=== PATIENT | male | born 1935 | race Caucasian/White ===

== ENCOUNTER 2017-11-06 23:32 | Inpatient (IN) | payer OTHER ==
[~2017-11-06] VITALS: Ht 160 cm; Wt 134.8 kg
[~2017-11-06 23:32] MED LIST: Aspirin Chewable PO; Coumadin,Jantoven PO; FINASTERIDE5 MG PO; Flomax PO; K-Dur PO; LASIX40 MG PO; LOVENOX100 MG/1 M SC; MOBIC7.5 MG PO; OMEGA 3-6-91200 MG PO; TOPROL XL100 MG PO; Zestril,Prinivil PO; Zocor PO
[2017-11-07 00:45] LABS: HEMOGLOBIN 13.5 G/DL (12.5-16.6); MCH 31.1 PG (29.0-34.0); MCHC 34.6 G/DL (30.0-36.0); MCV 89.9 FL (86-99); PLATELET COUNT 188 K/uL (156-360); RBC DIS.WIDTH-CV 13.8 % (11.8-14.6); RBC DIS.WIDTH-SD 45.1 % (39-53); RED BLOOD COUNT 4.34 M/uL (4.00-5.50); WHITE BLOOD COUNT 12.4 K/uL (4.1-10.2)
[2017-11-07 00:55] LABS: ALBUMIN 4.2 g/dL (3.2-4.8)
[2017-11-07 00:56] LABS: CHLORIDE 101 mEq/L (99-109); POTASSIUM 4.2 mEq/L (3.7-5.4); SODIUM 137 mEq/L (136-147)
[2017-11-07 00:58] LABS: GLUCOSE 145 mg/dL (70-99); TOTAL PROTEIN 7.4 g/dL (6.4-8.3)
[2017-11-07 01:00] LABS: TOTAL BILIRUBIN 1.3 mg/dL (0.0-1.0)
[2017-11-07 01:01] LABS: ALKALINE PHOSPHATASE 57 IU/L (3-129)
[2017-11-07 01:02] LABS: CREATININE 1.1 mg/dL (0.6-1.3); GFR ESTIMATE (CALCULATED) > 59 mL/min/ (58.99-99999)
[2017-11-07 01:03] LABS: AST (GOT) 13 IU/L (2-34); UREA NITROGEN (BUN) 22 mg/dL (9-23)
[2017-11-07 01:04] LABS: ALT (GPT) 10 IU/L (3-49)
[2017-11-07 01:42] LABS: APPEARANCE CLEAR ((CLEAR)); BILIRUBIN NEGATIVE; BLOOD SMALL; COLOR YELLOW ((YELLOW)); GLUCOSE (STRIP) NEGATIVE; KETONES NEGATIVE; LEUKOCYTES SMALL; NITRITE NEGATIVE; PROTEIN (STRIP) 30; SPECIFIC GRAVITY 1.026 (1.000-1.030)
[2017-11-07 01:51] LABS: BACTERIA NONE SEEN /HPF; EPITHELIAL CELLS RARE /HPF; MUCUS TRACE /LPF; UCUL ADDED? YES
[2017-11-07 03:13] LABS: LIPASE 14 U/L (1.0-51.0)
[2017-11-07 03:16] LABS: TROP-I INTERPRETATION NEGATIVE; TROPONIN-I < 0.01 ng/mL (0.0-0.30)
[2017-11-07] MEDS ORDERED: LISINOPRIL5 MG PO (06:38)
[2017-11-07] MEDS ORDERED: FUROSEMIDE20 MG PO (06:39)
[2017-11-07] MEDS ORDERED: METOPROLOL SUCC50 MG PO (06:40)
[2017-11-07] MEDS ORDERED: SIMVASTATIN40 MG PO (06:40)
[2017-11-07] MEDS ORDERED: K-DUR20 MEQ PO (06:42)
[2017-11-07] MEDS ORDERED: NAPROXEN500 M1 PO (06:43)
[2017-11-07] MEDS ORDERED: FINASTERIDE5 MG PO (06:44)
[2017-11-07] MEDS ORDERED: ASPIRIN81 M2 PO (06:45)
[2017-11-07] MEDS ORDERED: LASIX20 MG PO (10:38)
[2017-11-07] MEDS ORDERED: NAPROSYN500 MG PO (10:41)
[2017-11-07] MEDS ORDERED: NITROGLYCERIN0.4 MG SL (10:42)
[2017-11-07] MEDS ORDERED: ZOCOR40 MG PO (10:42)
[2017-11-07 16:27] VITALS: BP 170/78
[2017-11-07 17:33] VITALS: BP 145/87
[2017-11-07 19:37] VITALS: BP 143/67
[2017-11-08] VITALS (7 sets, daily range): BP systolic 101–149; BP diastolic 56–88
[2017-11-08 05:42] LABS: HEMATOCRIT 38.1 % (38.0-50.0); HEMOGLOBIN 12.5 G/DL (12.5-16.6); MCH 30.7 PG (29.0-34.0); MCHC 32.8 G/DL (30.0-36.0); MCV 93.6 FL (86-99); PLATELET COUNT 168 K/uL (156-360); RBC DIS.WIDTH-SD 48.2 % (39-53); RED BLOOD COUNT 4.07 M/uL (4.00-5.50); WHITE BLOOD COUNT 16.3 K/uL (4.1-10.2)
[2017-11-08 06:03] LABS: ALBUMIN 2.9 G/DL (3.2-4.8); ALKALINE PHOSPHATASE 45 IU/L (3-129); ALT (GPT) 7 IU/L (3-49); AST (GOT) 13 IU/L (2-34); CHLORIDE 100 MEQ/L (99-109); GFR ESTIMATE (CALCULATED) > 59 mL/min/ (58.99-99999); GLUCOSE 134 mg/dL (70-99); POTASSIUM 3.6 MEQ/L (3.7-5.4); SODIUM 132 MEQ/L (136-147); TOTAL BILIRUBIN 0.9 MG/DL (0.0-1.0); TOTAL PROTEIN 5.4 G/DL (6.4-8.3); UREA NITROGEN (BUN) 17 mg/dL (9-23)
[2017-11-09] VITALS (8 sets, daily range): BP systolic 95–125; BP diastolic 51–77
[2017-11-09 09:05] LABS: HEMATOCRIT 37.6 % (38.0-50.0); HEMOGLOBIN 12.1 G/DL (12.5-16.6); MCH 31.3 PG (29.0-34.0); MCHC 32.2 G/DL (30.0-36.0); MCV 97.2 FL (86-99); PLATELET COUNT 184 K/uL (156-360); RBC DIS.WIDTH-CV 14.4 % (11.8-14.6); RBC DIS.WIDTH-SD 51.1 % (39-53); RED BLOOD COUNT 3.87 M/uL (4.00-5.50); WHITE BLOOD COUNT 14.1 K/uL (4.1-10.2)
[2017-11-09 09:23] LABS: ALBUMIN 3.1 G/DL (3.2-4.8); ALKALINE PHOSPHATASE 53 IU/L (3-129); ALT (GPT) 8 IU/L (3-49); AST (GOT) 14 IU/L (2-34); CHLORIDE 103 MEQ/L (99-109); GLUCOSE 136 mg/dL (70-99); SODIUM 133 MEQ/L (136-147); TOTAL BILIRUBIN 0.8 MG/DL (0.0-1.0); TOTAL PROTEIN 5.5 G/DL (6.4-8.3)
[2017-11-09 09:24] LABS: CREATININE 2.3 MG/DL (0.6-1.3); GFR ESTIMATE (CALCULATED) 29 mL/min/ (58.99-99999); POTASSIUM 4.7 MEQ/L (3.7-5.4); UREA NITROGEN (BUN) 36 mg/dL (9-23)
[2017-11-09 20:19] LABS: HEMATOCRIT 34.1 % (38.0-50.0); HEMOGLOBIN 11.1 G/DL (12.5-16.6); MCH 30.3 PG (29.0-34.0); MCHC 32.6 G/DL (30.0-36.0); RED BLOOD COUNT 3.66 M/uL (4.00-5.50); WHITE BLOOD COUNT 14.7 K/uL (4.1-10.2)
[2017-11-09 20:20] LABS: MCV 93.2 FL (86-99); PLATELET COUNT 213 K/uL (156-360); RBC DIS.WIDTH-CV 14.1 % (11.8-14.6); RBC DIS.WIDTH-SD 48.5 % (39-53)
[2017-11-09 20:33] LABS: ALKALINE PHOSPHATASE 58 IU/L (3-129); CHLORIDE 102 MEQ/L (99-109); CREATININE 2.2 MG/DL (0.6-1.3); GFR ESTIMATE (CALCULATED) 31 mL/min/ (58.99-99999); GLUCOSE 191 mg/dL (70-99); MAGNESIUM 1.9 mg/dl (1.3-2.7); PHOSPHORUS 3.8 mg/dL (2.5-4.9); POTASSIUM 5.2 MEQ/L (3.7-5.4); SODIUM 131 MEQ/L (136-147); TOTAL BILIRUBIN 0.8 MG/DL (0.0-1.0); TOTAL PROTEIN 5.6 G/DL (6.4-8.3); UREA NITROGEN (BUN) 42 mg/dL (9-23)
[2017-11-09 20:42] LABS: ALT (GPT) 40 IU/L (3-49); AST (GOT) 76 IU/L (2-34)
[2017-11-10] VITALS (18 sets, daily range): BP systolic 95–154; BP diastolic 43–88
[2017-11-10 07:03] LABS: HEMATOCRIT 32.7 % (38.0-50.0); MCH 31.3 PG (29.0-34.0); MCHC 33.6 G/DL (30.0-36.0); MCV 92.9 FL (86-99); PLATELET COUNT 211 K/uL (156-360); RBC DIS.WIDTH-SD 47.8 % (39-53); RED BLOOD COUNT 3.52 M/uL (4.00-5.50); WHITE BLOOD COUNT 14.1 K/uL (4.1-10.2)
[2017-11-10 07:39] LABS: ALBUMIN 2.7 G/DL (3.2-4.8); ALKALINE PHOSPHATASE 60 IU/L (3-129); ALT (GPT) 37 IU/L (3-49); AST (GOT) 67 IU/L (2-34); CHLORIDE 103 MEQ/L (99-109); CREATININE 2.3 MG/DL (0.6-1.3); GFR ESTIMATE (CALCULATED) 29 mL/min/ (58.99-99999); GLUCOSE 199 mg/dL (70-99); POTASSIUM 4.9 MEQ/L (3.7-5.4); SODIUM 135 MEQ/L (136-147); TOTAL PROTEIN 5.2 G/DL (6.4-8.3); UREA NITROGEN (BUN) 51 mg/dL (9-23)
[2017-11-10 07:43] LABS: TOTAL BILIRUBIN 0.4 MG/DL (0.0-1.0)
[2017-11-11] VITALS (18 sets, daily range): BP systolic 87–152; BP diastolic 57–103
[2017-11-11 07:45] LABS: ALBUMIN 2.6 G/DL (3.2-4.8); ALKALINE PHOSPHATASE 62 IU/L (3-129); ALT (GPT) 26 IU/L (3-49); CHLORIDE 108 MEQ/L (99-109); GLUCOSE 177 mg/dL (70-99); PHOSPHORUS 2.7 mg/dL (2.5-4.9); POTASSIUM 4.7 MEQ/L (3.7-5.4); SODIUM 138 MEQ/L (136-147); TOTAL PROTEIN 4.8 G/DL (6.4-8.3); UREA NITROGEN (BUN) 57 mg/dL (9-23)
[2017-11-11 08:00] LABS: AST (GOT) 34 IU/L (2-34); CREATININE 1.6 MG/DL (0.6-1.3); GFR ESTIMATE (CALCULATED) 44 mL/min/ (58.99-99999); MAGNESIUM 2.3 mg/dl (1.3-2.7); TOTAL BILIRUBIN 0.3 MG/DL (0.0-1.0)
[2017-11-11 08:07] LABS: BASOPHIL (%) 0.1 % (0-1); EOSINOPHIL (%) 0 % (0-5); HEMATOCRIT 28.7 % (38.0-50.0); HEMOGLOBIN 9.5 G/DL (12.5-16.6); IMMATURE GRANULOCYTE (%) 0.8 % (0.0-0.7); LYMPHOCYTE (%) 2.8 % (15-42); LYMPHOCYTE COUNT 0.4 K/uL (1.0-2.8); MCH 30.4 PG (29.0-34.0); MCHC 33.1 G/DL (30.0-36.0); MCV 91.7 FL (86-99); MONOCYTE COUNT 1.7 K/uL (0-0.8); NEUTROPHIL (%) 85.3 % (45-76); NEUTROPHIL COUNT 12.9 K/uL (1.8-6.4); PLATELET COUNT 248 K/uL (156-360); RBC DIS.WIDTH-CV 14.4 % (11.8-14.6); RBC DIS.WIDTH-SD 48.9 % (39-53); RED BLOOD COUNT 3.13 M/uL (4.00-5.50); WHITE BLOOD COUNT 15.1 K/uL (4.1-10.2)
[2017-11-12] VITALS (10 sets, daily range): BP systolic 102–176; BP diastolic 46–106
[2017-11-12 05:49] LABS: BASOPHIL (%) 0.1 % (0-1); EOSINOPHIL (%) 0.3 % (0-5); HEMATOCRIT 28.2 % (38.0-50.0); IMMATURE GRANULOCYTE (%) 0.7 % (0.0-0.7); LYMPHOCYTE (%) 4.9 % (15-42); LYMPHOCYTE COUNT 0.5 K/uL (1.0-2.8); MCH 29.7 PG (29.0-34.0); MCHC 31.9 G/DL (30.0-36.0); MCV 93.1 FL (86-99); MONOCYTE (%) 11.3 % (3-12); MONOCYTE COUNT 1.2 K/uL (0-0.8); NEUTROPHIL (%) 82.7 % (45-76); PLATELET COUNT 252 K/uL (156-360); RBC DIS.WIDTH-CV 14.7 % (11.8-14.6); RBC DIS.WIDTH-SD 50.3 % (39-53); RED BLOOD COUNT 3.03 M/uL (4.00-5.50); WHITE BLOOD COUNT 10.8 K/uL (4.1-10.2)
[2017-11-12 06:20] LABS: CHLORIDE 107 MEQ/L (99-109); CREATININE 1.2 MG/DL (0.6-1.3); GFR ESTIMATE (CALCULATED) > 59 mL/min/ (58.99-99999); GLUCOSE 142 mg/dL (70-99); POTASSIUM 4.4 MEQ/L (3.7-5.4); SODIUM 141 MEQ/L (136-147); UREA NITROGEN (BUN) 49 mg/dL (9-23)
[2017-11-13 03:27] VITALS: BP 130/68
[2017-11-13 05:54] LABS: BASOPHIL (%) 0.1 % (0-1); EOSINOPHIL COUNT 0.1 K/uL (0-0.3); HEMATOCRIT 27.2 % (38.0-50.0); HEMOGLOBIN 8.8 G/DL (12.5-16.6); IMMATURE GRANULOCYTE (%) 1.1 % (0.0-0.7); LYMPHOCYTE (%) 7.2 % (15-42); LYMPHOCYTE COUNT 0.8 K/uL (1.0-2.8); MCH 30.4 PG (29.0-34.0); MCHC 32.4 G/DL (30.0-36.0); MCV 94.1 FL (86-99); MONOCYTE (%) 10.5 % (3-12); MONOCYTE COUNT 1.2 K/uL (0-0.8); NEUTROPHIL (%) 80.1 % (45-76); NEUTROPHIL COUNT 9.2 K/uL (1.8-6.4); NRBC (%) 0.2 /100 WBC (0-0); PLATELET COUNT 255 K/uL (156-360); RBC DIS.WIDTH-CV 14.9 % (11.8-14.6); RBC DIS.WIDTH-SD 51.4 % (39-53); RED BLOOD COUNT 2.89 M/uL (4.00-5.50); WHITE BLOOD COUNT 11.4 K/uL (4.1-10.2)
[2017-11-13 05:56] LABS: CHLORIDE 106 MEQ/L (99-109); GFR ESTIMATE (CALCULATED) > 59 mL/min/ (58.99-99999); GLUCOSE 139 mg/dL (70-99); POTASSIUM 4.4 MEQ/L (3.7-5.4); SODIUM 138 MEQ/L (136-147); UREA NITROGEN (BUN) 30 mg/dL (9-23)
[2017-11-13 08:23] VITALS: BP 137/72
[2017-11-13 12:19] VITALS: BP 139/78
[2017-11-13 16:30] VITALS: BP 154/69
[2017-11-13 19:18] VITALS: BP 146/68
[2017-11-13 23:16] VITALS: BP 158/75
[2017-11-14 04:03] VITALS: BP 154/68
[2017-11-14 05:37] LABS: BASOPHIL (%) 0.2 % (0-1); EOSINOPHIL COUNT 0.3 K/uL (0-0.3); HEMATOCRIT 28.4 % (38.0-50.0); HEMOGLOBIN 9.1 G/DL (12.5-16.6); IMMATURE GRANULOCYTE (%) 1.5 % (0.0-0.7); MCH 30.2 PG (29.0-34.0); MCV 94.4 FL (86-99); MONOCYTE (%) 9.1 % (3-12); MONOCYTE COUNT 1.2 K/uL (0-0.8); NEUTROPHIL (%) 79.2 % (45-76); NEUTROPHIL COUNT 10.1 K/uL (1.8-6.4); PLATELET COUNT 283 K/uL (156-360); RBC DIS.WIDTH-CV 14.9 % (11.8-14.6); RBC DIS.WIDTH-SD 51.3 % (39-53); RED BLOOD COUNT 3.01 M/uL (4.00-5.50); WHITE BLOOD COUNT 12.8 K/uL (4.1-10.2)
[2017-11-14 05:51] LABS: ALBUMIN 2.9 G/DL (3.2-4.8); ALKALINE PHOSPHATASE 74 IU/L (3-129); ALT (GPT) 33 IU/L (3-49); AST (GOT) 38 IU/L (2-34); CHLORIDE 103 MEQ/L (99-109); CREATININE 0.9 MG/DL (0.6-1.3); GFR ESTIMATE (CALCULATED) > 59 mL/min/ (58.99-99999); GLUCOSE 135 mg/dL (70-99); POTASSIUM 4.1 MEQ/L (3.7-5.4); SODIUM 136 MEQ/L (136-147); UREA NITROGEN (BUN) 22 mg/dL (9-23)
[2017-11-14 05:57] LABS: TOTAL BILIRUBIN 0.4 MG/DL (0.0-1.0); TOTAL PROTEIN 5.8 G/DL (6.4-8.3)
[2017-11-14 07:30] VITALS: BP 166/73
[2017-11-14 17:11] VITALS: BP 143/80
[2017-11-14 19:04] VITALS: BP 155/67
[2017-11-14 23:39] VITALS: BP 153/69
[2017-11-15 03:27] VITALS: BP 152/77
[2017-11-15 07:21] VITALS: BP 136/75
[2017-11-15] MEDS ORDERED: ELIQUIS5 MG PO (09:46)
[2017-11-15 10:48] VITALS: BP 126/62
[2017-11-15 15:26] VITALS: BP 136/64
[2017-11-15 15:55] LABS: APPEARANCE CLOUDY ((CLEAR)); BILIRUBIN NEGATIVE; BLOOD LARGE; COLOR YELLOW ((YELLOW)); GLUCOSE (STRIP) NEGATIVE; KETONES NEGATIVE; LEUKOCYTES NEGATIVE; NITRITE NEGATIVE; PROTEIN (STRIP) 100; SPECIFIC GRAVITY 1.018 (1.000-1.030); UROBILINOGEN 0.2 MG/DL (0.2-1.0)
[2017-11-15 16:15] LABS: HEMATOCRIT 30.5 % (38.0-50.0); MCHC 32.8 G/DL (30.0-36.0); MCV 94.4 FL (86-99); PLATELET COUNT 282 K/uL (156-360); RBC DIS.WIDTH-CV 14.6 % (11.8-14.6); RBC DIS.WIDTH-SD 50.5 % (39-53); RED BLOOD COUNT 3.23 M/uL (4.00-5.50); WHITE BLOOD COUNT 10.2 K/uL (4.1-10.2)
[2017-11-15 16:38] LABS: RED BLOOD CELLS TNTC /HPF (0-5)
[2017-11-15 16:39] LABS: BACTERIA RARE /HPF; EPITHELIAL CELLS RARE /HPF; MUCUS NONE SEEN /LPF; WHITE BLOOD CELLS 0-5 /HPF (0-5)
[2017-11-15 19:38] VITALS: BP 148/56
[2017-11-15 23:55] VITALS: BP 140/63
[2017-11-16 03:39] VITALS: BP 141/65
[2017-11-16 05:35] LABS: BASOPHIL (%) 0.2 % (0-1); EOSINOPHIL (%) 2.5 % (0-5); EOSINOPHIL COUNT 0.2 K/uL (0-0.3); HEMATOCRIT 28.4 % (38.0-50.0); HEMOGLOBIN 9.3 G/DL (12.5-16.6); IMMATURE GRANULOCYTE (%) 1.7 % (0.0-0.7); LYMPHOCYTE (%) 10.1 % (15-42); MCH 30.6 PG (29.0-34.0); MCHC 32.7 G/DL (30.0-36.0); MCV 93.4 FL (86-99); MONOCYTE (%) 8.9 % (3-12); MONOCYTE COUNT 0.8 K/uL (0-0.8); NEUTROPHIL (%) 76.6 % (45-76); NEUTROPHIL COUNT 7.3 K/uL (1.8-6.4); PLATELET COUNT 285 K/uL (156-360); RBC DIS.WIDTH-CV 14.6 % (11.8-14.6); RBC DIS.WIDTH-SD 50.2 % (39-53); RED BLOOD COUNT 3.04 M/uL (4.00-5.50); WHITE BLOOD COUNT 9.5 K/uL (4.1-10.2)
[2017-11-16 07:04] LABS: CHLORIDE 100 MEQ/L (99-109); GFR ESTIMATE (CALCULATED) > 59 mL/min/ (58.99-99999); GLUCOSE 113 mg/dL (70-99); POTASSIUM 4.5 MEQ/L (3.7-5.4); SODIUM 135 MEQ/L (136-147); UREA NITROGEN (BUN) 20 mg/dL (9-23)
[2017-11-16 07:07] VITALS: BP 134/62
[2017-11-16 10:40] VITALS: BP 130/50
[2017-11-16 16:30] VITALS: BP 132/63; BP 139/85
[2017-11-16 19:42] VITALS: BP 173/78
[2017-11-17 01:35] VITALS: BP 170/80
[2017-11-17 04:29] VITALS: BP 134/62
[2017-11-17 05:54] LABS: HEMATOCRIT 27.5 % (38.0-50.0); HEMOGLOBIN 8.8 G/DL (12.5-16.6); MCH 29.9 PG (29.0-34.0); MCV 93.5 FL (86-99); PLATELET COUNT 296 K/uL (156-360); RBC DIS.WIDTH-CV 14.6 % (11.8-14.6); RED BLOOD COUNT 2.94 M/uL (4.00-5.50); WHITE BLOOD COUNT 10.3 K/uL (4.1-10.2)
[2017-11-17 06:20] LABS: ALBUMIN 2.7 G/DL (3.2-4.8); ALKALINE PHOSPHATASE 66 IU/L (3-129); ALT (GPT) 22 IU/L (3-49); AST (GOT) 25 IU/L (2-34); CHLORIDE 100 MEQ/L (99-109); CREATININE 0.9 MG/DL (0.6-1.3); GFR ESTIMATE (CALCULATED) > 59 mL/min/ (58.99-99999); GLUCOSE 119 mg/dL (70-99); POTASSIUM 4.6 MEQ/L (3.7-5.4); SODIUM 136 MEQ/L (136-147); TOTAL PROTEIN 5.7 G/DL (6.4-8.3); UREA NITROGEN (BUN) 20 mg/dL (9-23)
[2017-11-17 06:21] LABS: TOTAL BILIRUBIN 0.3 MG/DL (0.0-1.0)
[2017-11-17 07:37] VITALS: BP 118/62
[2017-11-17 11:23] VITALS: BP 138/64
[2017-11-17 15:58] VITALS: BP 136/68
[2017-11-17 20:48] VITALS: BP 140/70
[2017-11-18] VITALS (7 sets, daily range): BP systolic 116–148; BP diastolic 57–72
[2017-11-19 03:31] VITALS: BP 158/67
[2017-11-19 06:14] LABS: BASOPHIL (%) 0.4 % (0-1); EOSINOPHIL (%) 2.9 % (0-5); EOSINOPHIL COUNT 0.3 K/uL (0-0.3); HEMATOCRIT 31.4 % (38.0-50.0); LYMPHOCYTE (%) 10.4 % (15-42); LYMPHOCYTE COUNT 1.2 K/uL (1.0-2.8); MCH 29.4 PG (29.0-34.0); MCHC 31.8 G/DL (30.0-36.0); MCV 92.4 FL (86-99); MONOCYTE (%) 11.7 % (3-12); MONOCYTE COUNT 1.3 K/uL (0-0.8); NEUTROPHIL (%) 73.6 % (45-76); NEUTROPHIL COUNT 8.2 K/uL (1.8-6.4); PLATELET COUNT 359 K/uL (156-360); RBC DIS.WIDTH-CV 14.5 % (11.8-14.6); RBC DIS.WIDTH-SD 49.1 % (39-53); WHITE BLOOD COUNT 11.1 K/uL (4.1-10.2)
[2017-11-19 06:38] LABS: CHLORIDE 99 MEQ/L (99-109); CREATININE 1.2 MG/DL (0.6-1.3); GFR ESTIMATE (CALCULATED) > 59 mL/min/ (58.99-99999); GLUCOSE 124 mg/dL (70-99); POTASSIUM 4.7 MEQ/L (3.7-5.4); SODIUM 138 MEQ/L (136-147); UREA NITROGEN (BUN) 21 mg/dL (9-23)
[2017-11-19 08:05] VITALS: BP 132/60
[2017-11-19 11:35] VITALS: BP 136/64
[2017-11-19] MEDS ORDERED: FLORASTOR250 MG PO (16:11)
[2017-11-19] MEDS ORDERED: FUROSEMIDE20 MG PO (16:11)
[2017-11-19] MEDS ORDERED: HYDROCODON-ACE1 EAC7 PO (16:11)
[2017-11-19] MEDS ORDERED: DOCUSATE SODIU100 MG PO (16:11)
== END 2017-11-19 18:53 | disposition home health service (06) | DRG 414 ==
LOC: EME 23:32 → 2EASTP 11-07 06:33 → EDOF 11-07 06:33 → 3EAST 11-07 06:33 → CANRESERV 11-07 06:42 → ENRESERV 11-07 06:42 → EDOF 11-07 06:57 → ENRESERV 11-07 08:07 → 2EASTP 11-07 15:54 → ENRESERV 11-09 19:04 → 4WEST 11-09 20:47 → ENRESERV 11-12 21:26 → 4WEST 11-12 21:32 → ENRESERV 11-12 21:34 → 3EAST 11-12 22:31 → CANRESERV 11-19 15:39 → ENRESERV 11-19 15:39 → 3EAST 11-19 18:53
PROVIDERS: Family Medicine; Internal Medicine; Internal Medicine Nephrology; Physician Assistant Medical; Thoracic Surgery (Cardiothoracic Vascular Surgery)
DX: K81.0 Acute cholecystitis (principal); N17.0 Acute kidney failure with tubular necrosis; E87.1 Hypo-osmolality and hyponatremia; I13.0 Hypertensive heart and chronic kidney disease with heart failure and stage 1 through stage 4 chronic kidney disease, or unspecified chronic kidney disease; I48.91 Unspecified atrial fibrillation; E83.51 Hypocalcemia; E11.22 Type 2 diabetes mellitus with diabetic chronic kidney disease; I50.9 Heart failure, unspecified; E78.5 Hyperlipidemia, unspecified; E66.01 Morbid (severe) obesity due to excess calories; N13.30 Unspecified hydronephrosis; G47.33 Obstructive sleep apnea (adult) (pediatric); Z68.43 Body mass index [BMI] 50.0-59.9, adult; N18.3 Chronic kidney disease, stage 3 (moderate); I25.10 Atherosclerotic heart disease of native coronary artery without angina pectoris; K76.0 Fatty (change of) liver, not elsewhere classified; I35.0 Nonrheumatic aortic (valve) stenosis; D64.9 Anemia, unspecified; K82.8 Other specified diseases of gallbladder; R31.0 Gross hematuria; T39.395A Adverse effect of other nonsteroidal anti-inflammatory drugs [NSAID], initial encounter; N40.0 Benign prostatic hyperplasia without lower urinary tract symptoms; I87.8 Other specified disorders of veins; Z86.718 Personal history of other venous thrombosis and embolism; Z95.1 Presence of aortocoronary bypass graft; Z82.49 Family history of ischemic heart disease and other diseases of the circulatory system; Z53.31 Laparoscopic surgical procedure converted to open procedure; Z79.01 Long term (current) use of anticoagulants; Z87.891 Personal history of nicotine dependence; Z88.2 Allergy status to sulfonamides; I25.2 Old myocardial infarction
CPT/HCPCS: 74177; 76705; 76770; 80048; 80053; 81003; 83690; 83735; 84100; 84484; 85025; 85027; 87070; 87075; 87077; 87086; 87186; 87205; 87641; 88304; 89190; 93005; 93306; 94002; 94010; 94640; 94640 76; 94660; 94760; 94799; 97530 GO; 97530 GP; 99202; 99281; 99285; J0131; J0330; J0696; J1100; J1170; J1644; J1885; J2405; J2543; J3010; J7030; J7040; J7050; Q0161; S0020; S0028